=== PATIENT | male | born 1985 | race African-American/Black ===

== ENCOUNTER 2017-05-14 23:04 | Emergency (ER) | payer OTHER ==
[~2017-05-14] VITALS: Ht 190.5 cm; Wt 95.3 kg
[2017-05-14] MEDS ORDERED: NKM (23:15)
--- NOTE | 2017-05-14 23:42 | Emergency Room Report ---
History of Present Illness General Chief Complaint: Lower Extremity Injury Source: Patient Present Illness HPI This is a 32-year-old male with no past history. He presents with chief complaint of right foot pain. 2 days ago he stubbed his foot on the bed. Now there is tenderness and swelling to the fifth toe. No fever or chills. No nausea no vomiting. Pain is 8/10. Worse with walking. Worse with palpation. Allergies: Coded Allergies: No Known Allergies (Unverified , 05/08/12) Patient History Past Medical History: see triage record, old chart reviewed Past Surgical History: none Pertinent Family History: none Social History: Denies: smoking Immunizations: other Reviewed Nursing Documentation: PMH: Agreed, PSxH: Agreed Nursing Documentation-PMH Past Medical History: No Stated History Review of Systems Eye: Denies: eye pain, blurred vision ENT: Denies: ear pain, nose congestion, throat swelling Respiratory: Denies: cough, shortness of breath Cardiovascular: Denies: chest pain, palpitations Gastrointestinal: Denies: abdominal pain, diarrhea, nausea, vomiting Musculoskeletal: Denies: back pain, joint pain Skin: Denies: rash Neurological: Denies: headache, numbness Endocrine: Denies: increased thirst, increased urine Hematologic/Lymphatic: Denies: easy bruising All Other Systems: negative except mentioned in HPI Physical Exam Vital Signs Date Time Temp Pulse Resp B/P (MAP) Pulse Ox O2 Delivery O2 Flow Rate FiO2 05/14/17 23:09 98.1 74 16 125/68 97 vitals normal Sp02 EP Interpretation: reviewed, normal General Appearance: well appearing, no apparent distress, alert Head: normocephalic, atraumatic Eyes: bilateral eye PERRL, bilateral eye EOMI ENT: hearing grossly normal, normal pharynx Neck: full range of motion, supple, no meningismus Respiratory: chest non-tender, lungs clear, normal breath sounds Cardiovascular #1: regular rate, rhythm, no murmur Gastrointestinal: normal bowel sounds, non tender, no mass, no organomegaly, no bruit, non-distended Musculoskeletal: back normal, gait/station normal, normal range of motion, other - Right foot: There is tenderness to the base of the fifth toe and web space area. There is a fluctuant area over the web space and medial aspect of the fifth toe. Tender to palpation. No redness. Sensation normal. Neurologic: alert, oriented x3 Psychiatric: mood/affect normal Skin: warm/dry Medical Decision Making Diagnostic Impression: Primary Impression: Contusion of toe of right foot Qualified Codes: S90.121A - Contusion of right lesser toe(s) without damage to nail, initial encounter ER Course Patient presents with injury to the right foot/toe. The fluctuant area may be a blood blister. I cleaned the area and aspirate the fluctuant area and only got blood back. No pus. We'll put on antibiotics because of the area of injury. No fracture. Other X-Ray Diagnostic Results Other X-Ray Diagnostic Results : X-Ray ordered: X-rays right foot # of Views/Limited Vs Complete: 3 View Indication: Pain EP Interpretation: Yes Interpretation: no dislocation, no soft tissue swelling, no fractures Impression: No acute disease Electronically Signed by: Electronically signed by Lacho Peña MD Last Vital Signs Date Time Temp Pulse Resp B/P (MAP) Pulse Ox O2 Delivery O2 Flow Rate FiO2 05/14/17 23:09 98.1 74 16 125/68 97 Status: improved Disposition: HOME, SELF-CARE Condition: Stable Scripts Ibuprofen* (MOTRIN*) 600 Mg Tablet 600 MG ORAL Q8H Y for For Pain, #30 TAB 0 Refills Prov: LACHO PEÑA M.D. 05/15/17 Cephalexin* (KEFLEX*) 500 Mg Capsule 500 MG ORAL TID, #21 CAP 0 Refills Prov: LACHO PEÑA M.D. 05/15/17 Additional Instructions: Keep wound clean. Followup with your Dr. in 7 days. Return if symptoms worsen or evidence of infection. LACHO PEÑA M.D. May 14, 2017 23:42
[2017-05-14] MEDS ORDERED: Norco 5mg/325mg tab ORAL ONE (23:45)
[2017-05-15] MEDS ORDERED: IBUPROFEN600 MG ORAL (00:36)
[2017-05-15] MEDS ORDERED: KEFLEX500 MG ORAL (00:36)
[2017-05-15 00:53] VITALS: BP 125/68
--- NOTE | 2017-05-15 10:27 | Diagnostic Imaging Report ---
Indications: TRAUMA Technique: 3 views of the right foot Comparison: None Findings: No acute fractures. No dislocations. Joint spaces are preserved. No radiopaque foreign body. Normal mineralization. Impression: No acute process
== END 2017-05-15 00:54 | disposition home or self-care (01) ==
LOC: EMR 23:25
DX: S90.121A Contusion of right lesser toe(s) without damage to nail, initial encounter (principal); W22.8XXA Striking against or struck by other objects, initial encounter; Y93.9 Activity, unspecified; Y92.9 Unspecified place or not applicable
CPT/HCPCS: 99284

== ENCOUNTER 2017-09-27 06:17 | Emergency (ER) | payer SELFPAY ==
[~2017-09-27] VITALS: Ht 190.5 cm; Wt 96.2 kg
[~2017-09-27 06:17] MED LIST: IBUPROFEN600 MG ORAL; KEFLEX500 MG ORAL; NKM
[2017-09-27 06:25] VITALS: BP 138/68
[2017-09-27 07:22] LABS: APPEARANCE,URINE CLEAR; BILIRUBIN, URINE NEGATIVE (NEGATIVE); GLUCOSE, URINE (UA) NEGATIVE (NEGATIVE); KETONES,URINE NEGATIVE (NEGATIVE); LEUKOCYTE ESTERASE ,URINE 1+ (NEGATIVE); NITRITE,URINE NEGATIVE (NEGATIVE); PH,URINE 6.5 (4.5-8.0); PROTEIN,URINE NEGATIVE (NEGATIVE); UROBILINOGEN,URINE 1 MG/DL (0.0-1.0)
[2017-09-27 07:37] LABS: COLOR,URINE YELLOW
[2017-09-27] MEDS ORDERED: Azithromycin 250mg tab ORAL ONE (08:00)
[2017-09-27] MEDS ORDERED: Lidocaine 1% MPF 10mg/ml 5ml INJ ONE (08:00)
--- NOTE | 2017-09-27 08:04 | Emergency Room Report ---
History of Present Illness General Chief Complaint: General Complaint Source: Patient Present Illness HPI [id number] walk-in to "get checked for STDs." States his girlfriend recently tx for G&C and they have been having intercourse He denies dysuria, discharge Feels well otherwise, no symptoms No fever/chills Allergies: Coded Allergies: No Known Allergies (Unverified , 05/08/12) Patient History Past Medical History: none Past Surgical History: none Pertinent Family History: none Social History: Denies: smoking, alcohol use, drug use Immunizations: UTD Reviewed Nursing Documentation: PMH: Agreed, PSxH: Agreed Nursing Documentation-PMH Past Medical History: No Stated History Review of Systems All Other Systems: negative except mentioned in HPI Physical Exam Vital Signs Date Time Temp Pulse Resp B/P (MAP) Pulse Ox O2 Delivery O2 Flow Rate FiO2 09/27/17 06:21 98.1 92 18 138/68 98 Room Air Sp02 EP Interpretation: reviewed, normal General Appearance: normal inspection, well appearing, no apparent distress, alert, GCS 15, non-toxic Head: normocephalic, atraumatic Eyes: bilateral eye PERRL, bilateral eye EOMI ENT: normal ENT inspection, hearing grossly normal, normal pharynx, no angioedema, normal voice, TMs + canals normal, uvula midline, moist mucus membranes Neck: normal inspection, full range of motion, supple, thyroid normal, no meningismus, no bony tend Respiratory: normal inspection, lungs clear, normal breath sounds, no rhonchi, no respiratory distress, no retraction, no accessory muscle use, no wheezing, speaking full sentences Cardiovascular #1: regular rate, rhythm, no edema, no JVD, normal capillary refill Gastrointestinal: normal inspection, normal bowel sounds, non tender, soft, no mass, no peritonitis, non-distended, no guarding, no hernia, no pulsatile mass Genitourinary: no CVA tenderness Musculoskeletal: normal inspection, back normal, normal range of motion, no calf tenderness, pelvis stable, Sadia's Sign negative Neurologic: normal inspection, alert, oriented x3, responsive, 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 Disposition: Patient is to be discharged to home. Patient is instructed to follow up with their primary care doctor within 5 days. Strict return precautions discussed with patient such as fever, chills, worsening/severe pain, nausea, vomiting, which may indicate severe illness. Patient verbalizes understanding and agrees with plan. Please note that this Emergency Department Report was dictated using [employer] technology software, occasionally this can lead to erroneous entry secondary to interpretation by the dictation equipment Last Vital Signs Date Time Temp Pulse Resp B/P (MAP) Pulse Ox O2 Delivery O2 Flow Rate FiO2 09/27/17 06:25 98.1 92 18 138/68 98 Room Air Status: improved Disposition: HOME, SELF-CARE Condition: Improved Referrals: NOT CHOSEN IPA/,REFERRING (PCP) Patient Instructions: Medical Screening Exam MAGGIE JEONG M.D. Sep 27, 2017 08:04
[2017-09-27 08:05] VITALS: BP 131/70
== END 2017-09-27 08:05 | disposition home or self-care (01) ==
LOC: EMR 07:06
DX: Z20.2 Contact with and (suspected) exposure to infections with a predominantly sexual mode of transmission (principal)
CPT/HCPCS: 81003; 96372; 99284; J0696